=== PATIENT | male | born 1940 | race Caucasian/White ===

== ENCOUNTER 2018-01-19 13:15 | Inpatient (IN) | payer MEDICARE ==
[~2018-01-19] VITALS: Ht 180.3 cm; Wt 89.9 kg
[~2018-01-19 13:15] MED LIST: ACAR50; AMLO5 PO; AMOX875 PO; ASPI81EC PO; CLOP75 PO; DOXA2 PO; DOXA4 PO; FAMO20 PO; FENO145 PO; FISH1000 PO; GLYMET2.5; HYDACE5 PO; HYDCHL12.5 PO; INSDET100 SQ; LOSARTAN POTAS100 MG PO; LOVA20 PO; LOVA40 PO; METF500 PO; METO50; METO50 PO; NAPR550 PO; PERI4 PO; TRESIBA FL200 UNIT/1 SC; Triamterene W/1 EACH PO
[2018-01-19 13:40] LABS: Calcium, Ionized (POC) 1.05 mmol/L (1.10-1.46); Chloride (POC) 107 mmol/L (98-108); Creatinine (POC) 1.7 mg/dL (0.8-1.3); Glucose (ISTAT POC) 189 mg/dL (70-99); Hemoglobin (POC) 13.3 g/dL (13.5-17.5); Potassium (POC) 4.4 mmol/L (3.5-5.5); Sodium (POC) 138 mmol/L (135-148); Total CO2 (POC) 17 mmol/L (21-32)
[2018-01-19 14:04] LABS: BASOPHILS ABSOLUTE AUTO 0.05 K/mm3 (0.00-0.23); BASOPHILS PERCENT AUTO 1 % (0-2); EOSINOPHILS ABSOLUTE AUTO 0.13 K/mm3 (0.00-0.68); EOSINOPHILS PERCENT AUTO 1 % (0-6); Hematocrit 38.5 % (37.0-53.0); Hemoglobin 12.7 g/dL (13.5-17.5); IMMATURE GRAN ABSOLUTE AUTO 0.04 K/mm3 (0.00-0.10); IMMATURE GRAN PERCENT AUTO 0 % (0-1); LYMPHOCYTES ABSOLUTE AUTO 1.38 K/mm3 (0.84-5.20); LYMPHOCYTES PERCENT AUTO 13 % (21-46); MONOCYTES ABSOLUTE AUTO 0.53 K/mm3 (0.16-1.47); MONOCYTES PERCENT AUTO 5 % (4-13); Mean Corpuscular Volume 91 fL (80-100); Mean Platelet Volume 9.5 fL (9.1-12.4); NEUTROPHILS ABSOLUTE AUTO 8.77 K/mm3 (1.96-9.15); NEUTROPHILS PERCENT AUTO 80 % (41-73); Platelet Count 235 K/mm3 (150-400); RDW Coefficient Variation 12.4 % (11.7-14.2); RDW Standard Deviation 41.2 fL (35.1-46.3); Red Blood Cell Count 4.23 M/mm3 (4.30-5.90)
[2018-01-19 14:16] LABS: Troponin I 0.026 ng/mL (0.000-0.040)
[2018-01-19 14:20] LABS: Albumin, Blood 3.9 g/dL (3.4-5.0); Albumin/Globulin Ratio 1.1 (0.8-1.8); Bilirubin, Total 0.4 mg/dL (0.1-1.0); Bun/Creatinine Ratio 15.6 (12.0-20.0); Calcium, Blood 8.8 mg/dL (8.5-10.1); Creatinine, Blood 1.6 mg/dL (0.60-1.20); Globulin, Blood 3.7 g/dL (2.2-4.0); Potassium, Blood 4.3 mmol/L (3.5-5.5); Total Protein, Blood 7.6 g/dL (6.4-8.2)
[2018-01-19] MEDS ORDERED: LOSA25 PO (14:54)
[2018-01-19] MEDS ORDERED: Triamterene W/1 EACH PO (15:09)
[2018-01-19] MEDS ORDERED: Metoprolol Tar100 MG PO (15:09)
[2018-01-19] MEDS ORDERED: HYDRA25 PO (15:10)
[2018-01-19] MEDS ORDERED: Novofine 321 EACH MC (15:10)
[2018-01-19] MEDS ORDERED: LOSA50 PO (15:35)
[2018-01-19] MEDS ORDERED: METF500C PO (15:36)
[2018-01-20 03:54] LABS: Hematocrit 33.7 % (37.0-53.0); Mean Corpuscular HGB Conc 32.6 g/dL (31.5-36.5); Mean Corpuscular Volume 92 fL (80-100); Mean Platelet Volume 9.5 fL (9.1-12.4); Platelet Count 199 K/mm3 (150-400); RDW Coefficient Variation 12.4 % (11.7-14.2); RDW Standard Deviation 42.2 fL (35.1-46.3); Red Blood Cell Count 3.67 M/mm3 (4.30-5.90); White Blood Cell Count 6.36 K/mm3 (4.00-11.30)
[2018-01-20 04:09] LABS: Bun/Creatinine Ratio 17.7 (12.0-20.0); Calcium, Blood 7.9 mg/dL (8.5-10.1); Creatinine, Blood 1.41 mg/dL (0.60-1.20); Magnesium, Blood 1.9 mg/dL (1.6-2.4); Phosphorus, Blood 3.3 mg/dL (2.5-4.9); Potassium, Blood 4.4 mmol/L (3.5-5.5)
== END 2018-01-20 20:22 | disposition short-term general hospital (02) | DRG 287 ==
LOC: ER 13:15 → PCU 15:21
PROVIDERS: Emergency Medicine; Internal Medicine
PROC: 5A2204Z Restoration of Cardiac Rhythm, Single (ICD-10-PCS; 2018-01-19)
PROC: B2131ZZ Fluoroscopy of Multiple Coronary Artery Bypass Grafts using Low Osmolar Contrast (ICD-10-PCS; principal; 2018-01-20)
PROC: B2111ZZ Fluoroscopy of Multiple Coronary Arteries using Low Osmolar Contrast (ICD-10-PCS; 2018-01-20)
DX: I47.2 Ventricular tachycardia (principal); I25.810 Atherosclerosis of coronary artery bypass graft(s) without angina pectoris; I31.8 Other specified diseases of pericardium; I95.9 Hypotension, unspecified; J44.9 Chronic obstructive pulmonary disease, unspecified; E11.22 Type 2 diabetes mellitus with diabetic chronic kidney disease; I25.41 Coronary artery aneurysm; I44.1 Atrioventricular block, second degree; N18.3 Chronic kidney disease, stage 3 (moderate); I44.30 Unspecified atrioventricular block; F17.200 Nicotine dependence, unspecified, uncomplicated; I10 Essential (primary) hypertension; I25.10 Atherosclerotic heart disease of native coronary artery without angina pectoris; I12.9 Hypertensive chronic kidney disease with stage 1 through stage 4 chronic kidney disease, or unspecified chronic kidney disease; E55.9 Vitamin D deficiency, unspecified; E78.5 Hyperlipidemia, unspecified; N40.0 Benign prostatic hyperplasia without lower urinary tract symptoms; I25.2 Old myocardial infarction; Z95.1 Presence of aortocoronary bypass graft; Z95.5 Presence of coronary angioplasty implant and graft; Z79.899 Other long term (current) drug therapy; Z79.01 Long term (current) use of anticoagulants; Z88.5 Allergy status to narcotic agent; Z88.8 Allergy status to other drugs, medicaments and biological substances
CPT/HCPCS: 36415; 71045; 80047; 80048; 80053; 82947; 83036; 83735; 83880; 84100; 84484; 85014; 85025; 85027; 92960; 93005; 93010; 93306; 93455; 94640; 94760; 96360; 99152; 99153; 99285-25; C1769; J1644; J1650; J2250; J3010; J7030; Q9967

== ENCOUNTER 2019-05-15 18:18 | Inpatient (IN) | payer MEDICARE ==
[~2019-05-15] VITALS: Ht 182.9 cm; Wt 83.7 kg
[~2019-05-15 18:18] MED LIST changes: -CLOP75 PO; -DOXA4 PO; +LOSA25 PO; -LOVA40 PO; +Novofine 321 EACH MC; -TRESIBA FL200 UNIT/1 SC
[2019-05-15 19:12] LABS: BASOPHILS ABSOLUTE AUTO 0.02 K/mm3 (0.00-0.23); BASOPHILS PERCENT AUTO 0 % (0-2); EOSINOPHILS PERCENT AUTO 0 % (0-6); Hemoglobin 9.9 g/dL (13.5-17.5); IMMATURE GRAN ABSOLUTE AUTO 0.06 K/mm3 (0.00-0.10); IMMATURE GRAN PERCENT AUTO 1 % (0-1); LYMPHOCYTES ABSOLUTE AUTO 1.19 K/mm3 (0.84-5.20); LYMPHOCYTES PERCENT AUTO 9 % (21-46); MONOCYTES ABSOLUTE AUTO 0.55 K/mm3 (0.16-1.47); MONOCYTES PERCENT AUTO 4 % (4-13); Mean Corpuscular HGB 30.2 pg (26.0-34.0); Mean Corpuscular HGB Conc 31.9 g/dL (31.5-36.5); Mean Corpuscular Volume 95 fL (80-100); Mean Platelet Volume 10.2 fL (9.1-12.4); NEUTROPHILS ABSOLUTE AUTO 10.88 K/mm3 (1.96-9.15); NEUTROPHILS PERCENT AUTO 86 % (41-73); Platelet Count 249 K/mm3 (150-400); RDW Coefficient Variation 12.2 % (11.7-14.2); RDW Standard Deviation 42.4 fL (35.1-46.3); Red Blood Cell Count 3.28 M/mm3 (4.30-5.90)
[2019-05-15 19:35] LABS: Albumin, Blood 3.2 g/dL (3.4-5.0); Albumin/Globulin Ratio 1.1 (0.8-1.8); Bilirubin, Total 0.3 mg/dL (0.1-1.0); Bun/Creatinine Ratio 17.8 (12.0-20.0); Calcium, Blood 8.3 mg/dL (8.5-10.1); Creatinine, Blood 2.13 mg/dL (0.60-1.20); Potassium, Blood 4.4 mmol/L (3.5-5.5); Total Protein, Blood 6.2 g/dL (6.4-8.2)
[2019-05-15 20:52] LABS: CPK Creatine Kinase 302 U/L (39-308); Troponin I <0.015 ng/mL (0.000-0.040)
[2019-05-15 21:03] LABS: Source, Urine Clean Catch
[2019-05-15 21:10] LABS: Appearance, Urine Clear (Clear); Bilirubin, Urine Neg (Neg); Blood, Urine Neg (Neg); Color, Urine Yellow (P-Yellow); Glucose Qualitative, Urine Neg (Neg); Ketones, Urine Neg (Neg); Leukocyte Esterase, Urine Neg (Neg); Nitrite, Urine Neg (Neg); Protein, Urine 2+ (Neg); Specific Gravity, Urine 1.025 (1.003-1.022); Urobilinogen, Urine NORM (Normal)
[2019-05-15 21:16] LABS: Bacteria Few /hpf; Red Blood Cells, Urine 0-2 /hpf (0-2); Squamous Epithelial Cells Not Seen /hpf (Few); White Blood Cells, Urine 0-2 /hpf (0-5)
[2019-05-15] MEDS ORDERED: AMLODIPINE BESYL5 MG PO (22:14)
[2019-05-15] MEDS ORDERED: TRESIBA FL200 UNIT/1 SC (22:15)
[2019-05-15] MEDS ORDERED: HYDRA25 PO (22:16)
[2019-05-15] MEDS ORDERED: CLOP75 PO (22:16)
[2019-05-15] MEDS ORDERED: Metoprolol Tar100 MG PO (22:17)
[2019-05-15] MEDS ORDERED: Dyazide 37.5-21 EACH PO (22:18)
[2019-05-15] MEDS ORDERED: Aspir 8181 MG PO (22:42)
[2019-05-15] MEDS ORDERED: METF500 PO (22:42)
[2019-05-15] MEDS ORDERED: LOSARTAN POTAS100 MG PO (22:42)
[2019-05-15] MEDS ORDERED: CARDURA4 MG PO (22:45)
[2019-05-15] MEDS ORDERED: LOVA40 PO (22:46)
[2019-05-15 23:30] LABS: Percent Saturation 26.6 % (20.0-50.0)
--- NOTE | 2019-05-15 23:55 | NUR ---
MD CALL RECIEVED CALL FROM [employer] TO ADVISE OF PACER INTERROGATION REPORT (RECEIVED VIA FAX). CALLED DR. DELUNA TO NOTIFY OF EVENTS NOTED (OVERDRIVE PACING FOR EPISODES OF V TACH AND FLUID OVERLOAD DETECTION LEVELS INCREASING). NO DETECTED SHOCK EVENTS FOR V TACH. PER DR. DELUNA, INTERROGATION REPORT PLACED ON FRONT OF CHART FOR MD REVIEW IN THE AM. WILL MONITOR FOR RHYTHM CHANGES OR EVENTS WHEN PT ARRIVES TO ROOM FROM THE ED.
[2019-05-16 04:10] LABS: BASOPHILS ABSOLUTE AUTO 0.05 K/mm3 (0.00-0.23); BASOPHILS PERCENT AUTO 1 % (0-2); EOSINOPHILS ABSOLUTE AUTO 0.03 K/mm3 (0.00-0.68); EOSINOPHILS PERCENT AUTO 0 % (0-6); Hematocrit 27.7 % (37.0-53.0); Hemoglobin 8.6 g/dL (13.5-17.5); IMMATURE GRAN ABSOLUTE AUTO 0.04 K/mm3 (0.00-0.10); IMMATURE GRAN PERCENT AUTO 0 % (0-1); LYMPHOCYTES ABSOLUTE AUTO 1.65 K/mm3 (0.84-5.20); LYMPHOCYTES PERCENT AUTO 17 % (21-46); MONOCYTES ABSOLUTE AUTO 0.87 K/mm3 (0.16-1.47); MONOCYTES PERCENT AUTO 9 % (4-13); Mean Corpuscular HGB 29.4 pg (26.0-34.0); Mean Corpuscular Volume 95 fL (80-100); Mean Platelet Volume 9.9 fL (9.1-12.4); NEUTROPHILS ABSOLUTE AUTO 7.23 K/mm3 (1.96-9.15); NEUTROPHILS PERCENT AUTO 73 % (41-73); Platelet Count 197 K/mm3 (150-400); RDW Coefficient Variation 12.4 % (11.7-14.2); RDW Standard Deviation 42.5 fL (35.1-46.3); Red Blood Cell Count 2.93 M/mm3 (4.30-5.90); White Blood Cell Count 9.87 K/mm3 (4.00-11.30)
[2019-05-16 04:28] LABS: Bun/Creatinine Ratio 18.2 (12.0-20.0); Creatinine, Blood 1.87 mg/dL (0.60-1.20); Magnesium, Blood 1.9 mg/dL (1.6-2.4); Potassium, Blood 3.7 mmol/L (3.5-5.5)
--- NOTE | 2019-05-16 07:50 | NUR ---
ASSUMED CARE OF PT AT AROUND 2345 HE ARRIVED BY [facility] FROM ER DEPT, PATIENT TRANSFERRED TO UNIT BED VIA SLIP SHEET BY 4 [facility] STAFF. PATIENT ALERT, ORIENTED, SENSITIVE TO TOUCH IN RIGHT LEG KNEE TO GROIN, OTHERWISE NO COMPLAINTS, NO ISSUES. PATIENT HAS FULL DENTURES AT HOME BUT DOES NOT USE THEM, SAME WITH HEARING AIDS; MANAGES WITHOUT BOTH. RIGHT LEG KNEE TO GROIN SWOLLEN AND TENDER, W BRUISING AT GROIN AND BROKEN SKIN/ BLISTERS AT KNEE: SEE PICTURES IN CHART. PATIENT WAS COMPLIANT WITH ROUTINE MEDICATION PER EMAR AND ALL INTERVENTION PER UNIT PROTOCOL, OUTSIDE OF WHICH HE SLEPT WITHOUT ISSUE. GAVE CARE AND REPORT TO ONCOMING SHIFT AT 0700, PATENT AWAKE AND ALERT LYING IN BED, LOCKED AND LOW, CALL LIGHT W/IN REACH.
[2019-05-16 10:18] LABS: IMMATURE RETIC FRACTION 14.4 % (2.3-16.0); RETIC HGB EQUIVALENT 34.2 pg (28.20-36.60); RETICULOCYTE COUNT PERCENT 2.7 % (0.50-2.50)
[2019-05-16 10:35] LABS: Free Thyroxine 1.12 ng/dL (0.70-1.60)
[2019-05-16 10:43] LABS: Percent Saturation 19.2 % (20.0-50.0)
[2019-05-16 10:53] LABS: Thyroid Stimulating Hormone 1.01 uIU/mL (0.360-4.800)
--- NOTE | 2019-05-16 14:46 | NUR ---
ECHOCARDIOGRAM COMPLETE
--- NOTE | 2019-05-16 15:40 | NUR ---
AMIODARONE DRIP ADJUSTED DOWN AT 1520 TO 0.5MG/MIN (16.6ML/HR) PER ORDER. INFUSION TO CONTINUE NEXT 18 HOURS. PT IS RESTING IN BED VISITING FAMILY. TELEMETRY SHOWS PT TO BE A-PACED AT 60.
--- NOTE | 2019-05-16 18:56 | NUR ---
SHIFT SUMMARY AMIODARONE DRIP WAS STARTED THIS MORNING. PT HAD AN INITIAL BP DROP INTO THE 80'S WITH THE BOLUS, BUT RECOVERED SHORTLY AFTER. PT'S BP'S HAVE BEEN STABLE SINCE WHILE ON THE DRIP. PRIOR TO THE START OF THE DRIP PER TELEMETERY, WITH WAS IN A SECOND DEGREE HB, WITH OCCASIONAL PACING. AFTER THE AMIO DRIP WAS STARTED PT HAS BEEN 100% A-PACED, RATE OF 60. WAS ABLE TO COLLECT STOOL FOR GUIACC SAMPLE THIS EVENING AND IT WAS SENT TO LAB. PT HAD A LARGE LOOSE BM, BUT ALSO HAD A LARGE AMOUNT OF FORMED STOOL MIXED IN. SWELLING RIGHT LEG HASN'T CHANGED DURING TODAY.
--- NOTE | 2019-05-17 06:03 | NUR ---
END OF SHIFT SUMMARY PT HAS BEEN AXO, VSS, NO ACUTE CHANGES THIS SHIFT. PT HAS BEEN REPOSITIONED IN BED BY STAFF AND HAS HAD CONTINENCE CHECKS DUE TO INCONTINENT BRIEFS. PT HAS REMAINED IN THE 60'S HR WITH 100% ATRIAL PACING AND UNDERLYING MOBITZ TYPE PER ELECTRICIAN SUPERVISOR. BP HAS REMAINED STABLE. HAS REMAINED ON RA. WOUNDS REMAIN FLAGMAN, NO DRAINAGE NOTED. AMIO GTT CONTINUES TO INFUSE AND SHOULD BE COMPLETE AROUND 0920 TODAY. OTHERWISE, PT HAS BEEN VERY PLEASANT AND COOPERATIVE THIS SHIFT. WILL CONTINUE TO MONITOR UNTIL SHIFT CHANGE.
[2019-05-17 09:37] LABS: BASOPHILS ABSOLUTE AUTO 0.06 K/mm3 (0.00-0.23); BASOPHILS PERCENT AUTO 1 % (0-2); EOSINOPHILS PERCENT AUTO 1 % (0-6); Hematocrit 28.8 % (37.0-53.0); Hemoglobin 9.1 g/dL (13.5-17.5); IMMATURE GRAN ABSOLUTE AUTO 0.04 K/mm3 (0.00-0.10); IMMATURE GRAN PERCENT AUTO 0 % (0-1); LYMPHOCYTES ABSOLUTE AUTO 1.82 K/mm3 (0.84-5.20); LYMPHOCYTES PERCENT AUTO 17 % (21-46); MONOCYTES ABSOLUTE AUTO 0.65 K/mm3 (0.16-1.47); MONOCYTES PERCENT AUTO 6 % (4-13); Mean Corpuscular HGB 30.5 pg (26.0-34.0); Mean Corpuscular HGB Conc 31.6 g/dL (31.5-36.5); Mean Corpuscular Volume 97 fL (80-100); Mean Platelet Volume 9.7 fL (9.1-12.4); NEUTROPHILS ABSOLUTE AUTO 7.85 K/mm3 (1.96-9.15); NEUTROPHILS PERCENT AUTO 75 % (41-73); Platelet Count 234 K/mm3 (150-400); RDW Coefficient Variation 12.5 % (11.7-14.2); RDW Standard Deviation 42.8 fL (35.1-46.3); Red Blood Cell Count 2.98 M/mm3 (4.30-5.90); White Blood Cell Count 10.52 K/mm3 (4.00-11.30)
[2019-05-17 09:56] LABS: Bilirubin, Total 0.4 mg/dL (0.1-1.0); Bun/Creatinine Ratio 21.4 (12.0-20.0); Calcium, Blood 8.3 mg/dL (8.5-10.1); Creatinine, Blood 1.4 mg/dL (0.60-1.20); Globulin, Blood 3.1 g/dL (2.2-4.0); Potassium, Blood 4.1 mmol/L (3.5-5.5); Total Protein, Blood 6.1 g/dL (6.4-8.2)
[2019-05-17 10:00] LABS: Thyroid Stimulating Hormone 1.68 uIU/mL (0.360-4.800)
[2019-05-17 14:22] LABS: Stool Occult Blood Guaiac 1 Neg (Neg)
--- NOTE | 2019-05-17 18:00 | NUR ---
SHIFT NOTE PT WAS UP TO BEDSIDE CHAIR MOST OF THE DAY TODAY, PT WAS PUT BACK TO BED EARLY THIS EVENING BY PT TO ELEVATE LEGS. SOME NEW SWELLING NOTED TO RIGHT KNEE ADN THIGH BUT HAS SUBSIDED WITH ELEVATION. PT HAS BEEN UP TO BEDSIDE COMMODE WITH FWW AND 1 PERSON STANDBY ASSIST, PT ABLE TO USE URINAL HIMSELF W/O DIFF. PT WITH NOTED THICK TONGUE SPEECH THAT PT STS IS HIS BASELINE. PHYSICAL THERAPY CONSULT SUGGESTS HOME HEALTH FOR PT. VSS. PT HAS HAD GOOD APPETITE T/O THE SHIFT WITH EXTRA SNACKS T/O DAY. PT DID HAVE BRIEF EPISODE OF HYPOGLYCEMIA THIS AM THAT RESOLVED WITH JUICE AND FOOD.
--- NOTE | 2019-05-18 05:23 | NUR ---
END OF SHIFT SUMMARY NO ACUTE CHANGES THIS SHIFT. VSS. REMAINS ATRIAL PACED BUT PACING APPEAR "ABNORMAL" WITH DROPPED BEATS AND INCONSISTENCIES ATTIMES. OPERATING ROOM SCHEDULER GENESIS HAS SEEN THE RHTYHM PER REPORT FROM THE DAY NURSE. BP HAS REMAINED STABLE. H REMAINS IN THE 60'S. BRUISING, BLISTERS, AN WOUNDS POST FALL PRE [facility] ALL REMAIN THE SAME. PT HAS SLEPT THROUGHOUT THE NIGHT AND USED THE EDWARD LIGHT APPROPRIATELY.
--- NOTE | 2019-05-18 08:34 | NUR ---
Pt has no complaints this morning. He is pleasant, cheerful, and has finished eating breakfast. Asking for coffee. Assisted to the chair after using the urinal.
[2019-05-18 09:21] LABS: BASOPHILS ABSOLUTE AUTO 0.07 K/mm3 (0.00-0.23); BASOPHILS PERCENT AUTO 1 % (0-2); EOSINOPHILS ABSOLUTE AUTO 0.17 K/mm3 (0.00-0.68); EOSINOPHILS PERCENT AUTO 2 % (0-6); Hematocrit 28.1 % (37.0-53.0); Hemoglobin 8.9 g/dL (13.5-17.5); IMMATURE GRAN ABSOLUTE AUTO 0.05 K/mm3 (0.00-0.10); IMMATURE GRAN PERCENT AUTO 1 % (0-1); LYMPHOCYTES ABSOLUTE AUTO 2.09 K/mm3 (0.84-5.20); LYMPHOCYTES PERCENT AUTO 24 % (21-46); MONOCYTES ABSOLUTE AUTO 0.65 K/mm3 (0.16-1.47); MONOCYTES PERCENT AUTO 8 % (4-13); Mean Corpuscular HGB 29.9 pg (26.0-34.0); Mean Corpuscular HGB Conc 31.7 g/dL (31.5-36.5); Mean Platelet Volume 9.8 fL (9.1-12.4); NEUTROPHILS ABSOLUTE AUTO 5.57 K/mm3 (1.96-9.15); NEUTROPHILS PERCENT AUTO 65 % (41-73); NRBC ABSOLUTE 0.02 K/mm3 (0.00-0.02); NRBC Auto 0.2 /100 WBC (0.0-0.2); Platelet Count 286 K/mm3 (150-400); RDW Coefficient Variation 12.6 % (11.7-14.2); RDW Standard Deviation 43.1 fL (35.1-46.3); Red Blood Cell Count 2.98 M/mm3 (4.30-5.90)
[2019-05-18 09:22] LABS: Mean Corpuscular Volume 94 fL (80-100)
[2019-05-18] MEDS ORDERED: Amiodarone HCl200 MG PO (09:52)
--- NOTE | 2019-05-18 19:22 | NUR ---
Call to the pt's home to notify him of home medication Tresiba Flextouch pen which was left. states she will come next Friday to pick it up.
== END 2019-05-18 12:01 | disposition home or self-care (01) | DRG 312 ==
LOC: ER 18:18 → PCU 22:50
PROVIDERS: Emergency Medicine; Hospitalist; Internal Medicine Cardiovascular Disease; Physician Assistant; ADMIT Internal Medicine
DX: I95.2 Hypotension due to drugs (principal); I47.2 Ventricular tachycardia; N17.9 Acute kidney failure, unspecified; Z79.4 Long term (current) use of insulin; I25.5 Ischemic cardiomyopathy; I25.10 Atherosclerotic heart disease of native coronary artery without angina pectoris; J44.9 Chronic obstructive pulmonary disease, unspecified; K21.9 Gastro-esophageal reflux disease without esophagitis; E78.5 Hyperlipidemia, unspecified; E11.22 Type 2 diabetes mellitus with diabetic chronic kidney disease; N18.3 Chronic kidney disease, stage 3 (moderate); I12.9 Hypertensive chronic kidney disease with stage 1 through stage 4 chronic kidney disease, or unspecified chronic kidney disease; Z87.891 Personal history of nicotine dependence; Z95.1 Presence of aortocoronary bypass graft; Z66 Do not resuscitate; Z95.0 Presence of cardiac pacemaker; W19.XXXA Unspecified fall, initial encounter; D64.9 Anemia, unspecified; T46.1X5A Adverse effect of calcium-channel blockers, initial encounter; T46.5X5A Adverse effect of other antihypertensive drugs, initial encounter; Y92.9 Unspecified place or not applicable
CPT/HCPCS: 36415; 51701; 71046; 73562-RT; 80048; 80053; 81001; 82272; 82550; 82607; 82728; 82746; 82947; 83036; 83540; 83550; 83735; 84439; 84443; 84484; 85025; 85045; 93005; 93010; 93306; 96360; 97162; 97530; 99285-25; J0282; J1650; J1815; J3475; J7030; J7060; J7120

== ENCOUNTER 2019-05-25 11:53 | Emergency (ER) | payer MEDICARE ==
[~2019-05-25] VITALS: Ht 180.3 cm; Wt 81.7 kg
[~2019-05-25 11:53] MED LIST changes: +AMLODIPINE BESYL5 MG PO; +Amiodarone HCl200 MG PO; +Aspir 8181 MG PO; +CARDURA4 MG PO; +CLOP75 PO; +Dyazide 37.5-21 EACH PO; +HYDRA25 PO; +LOVA40 PO; +Metoprolol Tar100 MG PO; +TRESIBA FL200 UNIT/1 SC
[2019-05-25 15:05] LABS: Calcium, Ionized (POC) 1.21 mmol/L (1.10-1.46); Chloride (POC) 107 mmol/L (98-108); Creatinine (POC) 1.5 mg/dL (0.8-1.3); Glucose (ISTAT POC) 64 mg/dL (70-99); Hemoglobin (POC) 10.2 g/dL (13.5-17.5); Potassium (POC) 4.6 mmol/L (3.5-5.5); Sodium (POC) 138 mmol/L (135-148); Total CO2 (POC) 22 mmol/L (21-32)
== END 2019-05-25 15:22 | disposition home or self-care (01) ==
LOC: ER 11:53
PROVIDERS: Emergency Medicine
DX: S70.11XA Contusion of right thigh, initial encounter (principal); D68.9 Coagulation defect, unspecified; T45.525A Adverse effect of antithrombotic drugs, initial encounter; I12.9 Hypertensive chronic kidney disease with stage 1 through stage 4 chronic kidney disease, or unspecified chronic kidney disease; E11.22 Type 2 diabetes mellitus with diabetic chronic kidney disease; N18.3 Chronic kidney disease, stage 3 (moderate); I25.10 Atherosclerotic heart disease of native coronary artery without angina pectoris; J44.9 Chronic obstructive pulmonary disease, unspecified; I25.2 Old myocardial infarction; M79.651 Pain in right thigh; Z88.5 Allergy status to narcotic agent; Z88.8 Allergy status to other drugs, medicaments and biological substances; Z79.899 Other long term (current) drug therapy; Z79.82 Long term (current) use of aspirin; Z79.4 Long term (current) use of insulin; Z87.891 Personal history of nicotine dependence; Z95.5 Presence of coronary angioplasty implant and graft; W19.XXXA Unspecified fall, initial encounter
CPT/HCPCS: 36415; 80047; 85014; 90471; 90714; 93971; 99284-25

== ENCOUNTER 2019-06-30 16:54 | Inpatient (IN) | payer MEDICARE ==
[~2019-06-30] VITALS: Ht 182.9 cm; Wt 78.1 kg
[~2019-06-30 16:54] MED LIST changes: +METO25 PO; -Metoprolol Tar100 MG PO
[2019-06-30 18:03] LABS: BASOPHILS ABSOLUTE AUTO 0.04 K/mm3 (0.00-0.23); BASOPHILS PERCENT AUTO 0 % (0-2); EOSINOPHILS ABSOLUTE AUTO 0.04 K/mm3 (0.00-0.68); EOSINOPHILS PERCENT AUTO 0 % (0-6); Hematocrit 38.3 % (37.0-53.0); Hemoglobin 12.4 g/dL (13.5-17.5); IMMATURE GRAN ABSOLUTE AUTO 0.05 K/mm3 (0.00-0.10); IMMATURE GRAN PERCENT AUTO 0 % (0-1); LYMPHOCYTES ABSOLUTE AUTO 0.81 K/mm3 (0.84-5.20); LYMPHOCYTES PERCENT AUTO 7 % (21-46); MONOCYTES ABSOLUTE AUTO 0.54 K/mm3 (0.16-1.47); MONOCYTES PERCENT AUTO 4 % (4-13); Mean Corpuscular HGB 30.7 pg (26.0-34.0); Mean Corpuscular HGB Conc 32.4 g/dL (31.5-36.5); Mean Corpuscular Volume 95 fL (80-100); NEUTROPHILS ABSOLUTE AUTO 10.69 K/mm3 (1.96-9.15); NEUTROPHILS PERCENT AUTO 88 % (41-73); Platelet Count 407 K/mm3 (150-400); RDW Coefficient Variation 13.2 % (11.7-14.2); RDW Standard Deviation 46.5 fL (35.1-46.3); Red Blood Cell Count 4.04 M/mm3 (4.30-5.90); White Blood Cell Count 12.17 K/mm3 (4.00-11.30)
[2019-06-30 18:23] LABS: CPK Creatine Kinase 57 U/L (39-308); Troponin I <0.015 ng/mL (0.000-0.040)
[2019-06-30] MEDS ORDERED: Dyazide 37.5-21 EACH PO (18:26)
[2019-06-30 18:28] LABS: Albumin, Blood 3.1 g/dL (3.4-5.0); Albumin/Globulin Ratio 0.8 (0.8-1.8); Bilirubin, Total 0.3 mg/dL (0.1-1.0); Bun/Creatinine Ratio 25.1 (12.0-20.0); Calcium, Blood 8.7 mg/dL (8.5-10.1); Creatinine, Blood 1.91 mg/dL (0.60-1.20); Globulin, Blood 3.8 g/dL (2.2-4.0); Potassium, Blood 4.9 mmol/L (3.5-5.5); Total Protein, Blood 6.9 g/dL (6.4-8.2)
--- NOTE | 2019-07-01 02:58 | NUR ---
spoke to Dr Bui regarding patient not voiding; only 50 ML output since he arrived to floor at 2130; ALSO Bladder scan shows 833 ml in the bladder; received Order for Straight Cath Q6P for bladder scan > 400 ML
--- NOTE | 2019-07-01 06:33 | NUR ---
PATIENT AO4 WITH PERIODS OF STML AND CONFUSION. HE HAD ONLY 50ML THE FIRST HALF OF THE SHIFT. BLADDER SCAN SHOWED 833 AND HE WAS STRAIGHT CATHED PER ORDER TO REURN 700 ML PER ORDER. NEW ORDER FOR STRAIGHT CATH Q6PRN FOR BLADDER VOLUME >400ML. PT OWN INSULIN IS IN HIS PATIENT DRAWER. PT TO HAVE CARDIOLOGY CX AND ORTHO CX WHICH HAVE BEEN CALLED. PT HAS OINTMENT TO RECTUM FOR HEMORRHOIDS.BED LOW LOCKED AND ALARMED. CALL ESTRADA WITHIN REACH.
[2019-07-01] MEDS ORDERED: Fish Oil Conc1000 MG PO (07:47)
[2019-07-01] MEDS ORDERED: GUAI600T33 PO (07:48)
[2019-07-01] MEDS ORDERED: THERA-D2000 UNIT PO (07:48)
[2019-07-01] MEDS ORDERED: FAMO20 PO (07:49)
[2019-07-01] MEDS ORDERED: NAPR220 PO (07:49)
[2019-07-01] MEDS ORDERED: HYDRA25 PO (07:50)
[2019-07-01 08:01] LABS: BASOPHILS ABSOLUTE AUTO 0.03 K/mm3 (0.00-0.23); BASOPHILS PERCENT AUTO 0 % (0-2); EOSINOPHILS ABSOLUTE AUTO 0.01 K/mm3 (0.00-0.68); EOSINOPHILS PERCENT AUTO 0 % (0-6); Hematocrit 36.5 % (37.0-53.0); Hemoglobin 11.8 g/dL (13.5-17.5); IMMATURE GRAN ABSOLUTE AUTO 0.08 K/mm3 (0.00-0.10); IMMATURE GRAN PERCENT AUTO 1 % (0-1); LYMPHOCYTES ABSOLUTE AUTO 0.81 K/mm3 (0.84-5.20); LYMPHOCYTES PERCENT AUTO 5 % (21-46); MONOCYTES ABSOLUTE AUTO 0.76 K/mm3 (0.16-1.47); MONOCYTES PERCENT AUTO 5 % (4-13); Mean Corpuscular HGB 30.6 pg (26.0-34.0); Mean Corpuscular HGB Conc 32.3 g/dL (31.5-36.5); Mean Corpuscular Volume 95 fL (80-100); Mean Platelet Volume 8.7 fL (9.1-12.4); NEUTROPHILS ABSOLUTE AUTO 14.62 K/mm3 (1.96-9.15); NEUTROPHILS PERCENT AUTO 90 % (41-73); Platelet Count 372 K/mm3 (150-400); RDW Coefficient Variation 13.1 % (11.7-14.2); RDW Standard Deviation 45.5 fL (35.1-46.3); Red Blood Cell Count 3.86 M/mm3 (4.30-5.90); White Blood Cell Count 16.31 K/mm3 (4.00-11.30)
[2019-07-01 08:19] LABS: Bun/Creatinine Ratio 26.3 (12.0-20.0); Calcium, Blood 8.7 mg/dL (8.5-10.1); Creatinine, Blood 1.52 mg/dL (0.60-1.20); Potassium, Blood 4.5 mmol/L (3.5-5.5)
[2019-07-01 11:53] LABS: Source, Urine Catheter
[2019-07-01 12:05] LABS: Bilirubin, Urine Neg (Neg); Blood, Urine 2+ (Neg); Glucose Qualitative, Urine 1+ (Neg); Ketones, Urine Neg (Neg); Leukocyte Esterase, Urine Neg (Neg); Nitrite, Urine Neg (Neg); Protein, Urine 3+ (Neg); Urobilinogen, Urine NORM (Normal)
[2019-07-01 12:14] LABS: Appearance, Urine Clear (Clear); Color, Urine Yellow (P-Yellow)
[2019-07-01 12:16] LABS: Amorphous Mod (0-Heavy); Bacteria Mod /hpf; Squamous Epithelial Cells Rare /hpf (Few); White Blood Cells, Urine 0-2 /hpf (0-5)
--- NOTE | 2019-07-01 18:11 | NUR ---
SHIFT SUMMARY PATIENT A/O X 4. FAMILY AT BEDSIDE. PATIENT HAS SOME CONFUSION AT TIMES, SENECA-CAYUGA. PATIENT IS HIGH FALL RISK, BED/CHAIR ALARM IN PLACE. VALERO IN PLACE PER ORDER. TELE ON PATIENT. BRADYCARDIA ADDRESSED BY PROVIDER. PATIENT HAS NEW ORDERS ENTERED FOR MANAGEMENT OF RIGHT LEG HEMATOMA. BRIAN HOSE IN PLACE. LN TO CONTINUE TO MONITOR.
--- NOTE | 2019-07-02 04:45 | NUR ---
SANDER SETTER SUMMARY NO ACUTE CHANGES THIS SHIFT. PT AAOX3 AND PLEASANT. BED ALARM ON FOR HIGH FALL RISK AND SOME INTERMITTENT CONFUSION. PT HAS RESTED MOST OF THE SHIFT TODAY. VALERO CATHETER DRAINING CLEAR YELLOW URINE. VSS, WILL CONTINUE TO MONITOR.
[2019-07-02 05:33] LABS: Hemoglobin 10.9 g/dL (13.5-17.5); Mean Corpuscular HGB 30.7 pg (26.0-34.0); Mean Corpuscular Volume 93 fL (80-100); Mean Platelet Volume 9.1 fL (9.1-12.4); Platelet Count 338 K/mm3 (150-400); RDW Coefficient Variation 13.1 % (11.7-14.2); RDW Standard Deviation 44.8 fL (35.1-46.3); Red Blood Cell Count 3.55 M/mm3 (4.30-5.90); White Blood Cell Count 14.63 K/mm3 (4.00-11.30)
[2019-07-02 06:00] LABS: Bun/Creatinine Ratio 28.1 (12.0-20.0); Calcium, Blood 8.4 mg/dL (8.5-10.1); Creatinine, Blood 1.39 mg/dL (0.60-1.20); Potassium, Blood 4.1 mmol/L (3.5-5.5)
--- NOTE | 2019-07-02 17:34 | NUR ---
SHIFT SUMMARY PATIENT HAS BEEN VERY PAINFUL AND FEARFUL DURING TRANSFERS. VARIES BETWEEN 2 PERSON AND 1 PERSON ASSIST. VALERO REMOVED, URINATING. ABLE TO MAKE HIS NEEDS KNOWN. FAMILY AT BEDSIDE.
--- NOTE | 2019-07-03 05:15 | NUR ---
RESIDENTIAL PROGRAM DIRECTOR SUMMARY NO ACUTE CHANGES THIS SHIFT. PT AAOX3, PLEASANT AND COOPERATIVE. GIVEN TRAMADOL X2 T/O THE NIGHT FOR LOWER BACK PAIN. PT REQUIRING ASSISTANCE WITH USING THE URINAL AT TIMES. VSS, WILL CONTINUE TO MONITOR.
[2019-07-03 08:16] LABS: Hematocrit 33.9 % (37.0-53.0); Hemoglobin 10.9 g/dL (13.5-17.5); Mean Corpuscular HGB 30.1 pg (26.0-34.0); Mean Corpuscular HGB Conc 32.2 g/dL (31.5-36.5); Mean Corpuscular Volume 94 fL (80-100); Mean Platelet Volume 8.7 fL (9.1-12.4); Platelet Count 298 K/mm3 (150-400); RDW Standard Deviation 44.7 fL (35.1-46.3); Red Blood Cell Count 3.62 M/mm3 (4.30-5.90)
[2019-07-03 08:36] LABS: Calcium, Blood 8.4 mg/dL (8.5-10.1); Creatinine, Blood 1.29 mg/dL (0.60-1.20); Potassium, Blood 4.6 mmol/L (3.5-5.5)
--- NOTE | 2019-07-03 16:48 | NUR ---
SUMMARY PT IS A/O X4, PLEASANT AFFECT. 2 ASSIST TO STAND/PIVOT TO BSC THIS AM, HE WAS ABLE TO HAVE BM. GAIT UNSTEADY. HE STATE L LEG GOES OUT FROM UNDER HIM W/O WARNING, STATE MULT FALLS @ HOME REASON FOR HOSP, VARIOUS SCATTERED BRUISES NOTED. DR LOAIZA CHANGED STATUS TO INPT TODAY, PT'S AWARE, STATE APPRECIATION & HOPEFUL FOR PT TO GO TO REHAB WHEN APPROP. VSS. BLOOD SUGAR ELEVATED 260 BF, 429 LUNCH, DR LOAIZA AWARE, CHANGE LONG ACTING BACK TO HOME TRESIBA.
--- NOTE | 2019-07-04 05:03 | NUR ---
SHIFT SUMMARY: AXEL IS A&OX3, FORGETFUL AT TIMES. REPORTING BACK PAIN UNRELIEVED BY TRAMADOL AND TYLENOL. HEAT THERAPY WAS ADDED AND TRIM INSTALLER MD WAS NOTIFIED. ORDER FOR LIDOCAIN PATCH TO BACK Q DAY WAS OBTAINED. PATIENT NOW HAS GOOD EFFECT FROM COMBINED TREATMENTS. ELEVATED BP WAS ALSO REPORTED TO MD, NO NEW ORDERS GIVE HOME MEDICATIONS ORDERED, TREAT PAIN AND CONTINUE TO MONITOR.
--- NOTE | 2019-07-05 03:44 | NUR ---
SHIFT SUMMARY: PATIENTS SKIN FRAGILE, CONDOM CATHETER PLACED D/T SEVERAL INCONTINENT VOIDS AND INABILITY TO SUCCESSFULLY USE THE URINAL. SUCTION SET UP DUE TO FREQUENT PHLEGM, PATIENT STATES THIS IS NORMAL FOR HIM. PATIENT EDUCATED ON CATHETER AND SUCTION AND STATES SATISFACTION WITH BOTH. PATIENT SBP >160 WHEN IN PAIN BUT DECREASES TO 140'S POST PAIN MEDICATION, KPAD ALSO PLACED FOR COMFORT. TOWEL ROLL PLACED UNDER NECK FOR NECK SUPPORT AND DECREASE IN BACK PAIN. PRESSURE DRESSING ON PATIENTS RIGHT LEG CHANGED. ALL HANDY PROMENANCES PADDED AND FREQUENT SKIN CARE COMPLETED. CALL LIGHT WITHIN REACH, BED LOW AND LOCKED WITH EXIT ALARM ON.
--- NOTE | 2019-07-05 17:39 | NUR ---
ALERT, ORIENTED X 3. 2 PERSON ASSIST TO BSC, VERY UNSTEADY ON FEET. PULLED CONDOM CATH OFF. HAS DIFFICULTY USING URINAL. SUCTION CHANGED TO SHEATHED YANKAUER TO KEEP YANKAUER CLEAN. ADVISED HOW TO USE. HAS NOT COMPLAINED OF PAIN. WCTM
--- NOTE | 2019-07-05 19:08 | NUR ---
Pt gave this clinical nursing professor permission to care for him on 07/06/2019
[2019-07-06 05:40] LABS: BASOPHILS ABSOLUTE AUTO 0.05 K/mm3 (0.00-0.23); BASOPHILS PERCENT AUTO 1 % (0-2); EOSINOPHILS ABSOLUTE AUTO 0.21 K/mm3 (0.00-0.68); EOSINOPHILS PERCENT AUTO 2 % (0-6); Hematocrit 35.8 % (37.0-53.0); Hemoglobin 11.6 g/dL (13.5-17.5); IMMATURE GRAN ABSOLUTE AUTO 0.05 K/mm3 (0.00-0.10); IMMATURE GRAN PERCENT AUTO 1 % (0-1); LYMPHOCYTES ABSOLUTE AUTO 1.14 K/mm3 (0.84-5.20); LYMPHOCYTES PERCENT AUTO 12 % (21-46); MONOCYTES ABSOLUTE AUTO 0.66 K/mm3 (0.16-1.47); MONOCYTES PERCENT AUTO 7 % (4-13); Mean Corpuscular HGB 30.1 pg (26.0-34.0); Mean Corpuscular HGB Conc 32.4 g/dL (31.5-36.5); Mean Corpuscular Volume 93 fL (80-100); Mean Platelet Volume 8.9 fL (9.1-12.4); NEUTROPHILS ABSOLUTE AUTO 7.05 K/mm3 (1.96-9.15); NEUTROPHILS PERCENT AUTO 77 % (41-73); Platelet Count 323 K/mm3 (150-400); RDW Coefficient Variation 12.8 % (11.7-14.2); RDW Standard Deviation 43.5 fL (35.1-46.3); Red Blood Cell Count 3.86 M/mm3 (4.30-5.90); White Blood Cell Count 9.16 K/mm3 (4.00-11.30)
--- NOTE | 2019-07-06 06:07 | NUR ---
SHIFT SUMMARY NO ACUTE CHANGES THIS SHIFT. AOX4. VSS. TELE RUNNING NSR W/1ST DEGREE HB & OCCASIONALLY PACED HR @60. CONDOM CATH PLACED SINCE PT HAS DIFFICULTY USING URINAL & FREQUENTLY HAS TO URINATE. DENIES N/V, DYSPNEA. REPORTS PAIN IN LOWER BACK, MEDICATED 1X W/ULTRAM & STATES RELIEF. PT TURNED & REPOSITIONED. CALL LIGHT IN REACH. WCTM.
[2019-07-06 06:10] LABS: Anion Gap 5 mmol/L (6-16); Blood Urea Nitrogen 26 mg/dL (8-24); Bun/Creatinine Ratio 22.6 (12.0-20.0); CO2, Blood 26 mmol/L (21-32); Calcium, Blood 8.4 mg/dL (8.5-10.1); Chloride, Blood 102 mmol/L (98-108); Creatinine, Blood 1.15 mg/dL (0.60-1.20); Glomerular Filtration Rate >60 (60-); Glucose, Blood 120 mg/dL (70-99); Potassium, Blood 4.5 mmol/L (3.5-5.5); Sodium, Blood 133 mmol/L (136-145)
--- NOTE | 2019-07-06 11:58 | NUR ---
REPORT GIVEN TO [facility] MERAZ. JOHN VALLES WILL GO WITH PATIENT.ANSWER ALL QUESTIONS.
[2019-07-06] MEDS ORDERED: TAMS.4ER PO (12:48)
[2019-07-06] MEDS ORDERED: FINA5 PO (12:48)
== END 2019-07-06 12:35 | DRG 872 ==
LOC: ER 16:54 → MEDS 16:55
PROVIDERS: Emergency Medicine; Internal Medicine; Physician Assistant; ADMIT Family Medicine
DX: A41.9 Sepsis, unspecified organism (principal); E87.1 Hypo-osmolality and hyponatremia; R53.1 Weakness; W18.30XA Fall on same level, unspecified, initial encounter; Y93.9 Activity, unspecified; Y92.9 Unspecified place or not applicable; I25.10 Atherosclerotic heart disease of native coronary artery without angina pectoris; J44.9 Chronic obstructive pulmonary disease, unspecified; Z79.4 Long term (current) use of insulin; K21.9 Gastro-esophageal reflux disease without esophagitis; Z87.891 Personal history of nicotine dependence; S70.11XA Contusion of right thigh, initial encounter; E78.5 Hyperlipidemia, unspecified; D47.3 Essential (hemorrhagic) thrombocythemia; Z95.1 Presence of aortocoronary bypass graft; N18.3 Chronic kidney disease, stage 3 (moderate); I12.9 Hypertensive chronic kidney disease with stage 1 through stage 4 chronic kidney disease, or unspecified chronic kidney disease; K59.00 Constipation, unspecified; E11.22 Type 2 diabetes mellitus with diabetic chronic kidney disease; E11.40 Type 2 diabetes mellitus with diabetic neuropathy, unspecified; N40.1 Benign prostatic hyperplasia with lower urinary tract symptoms; R33.9 Retention of urine, unspecified; Z95.810 Presence of automatic (implantable) cardiac defibrillator; E11.65 Type 2 diabetes mellitus with hyperglycemia; R33.8 Other retention of urine
CPT/HCPCS: 36415; 51701; 51702; 70450; 71045; 72070; 72100; 80048; 80053; 81001; 82550; 82947; 84145; 84484; 85025; 85027; 87040; 87086; 93005; 93010; 93971; 96361; 96365; 96366; 96374; 97110; 97162; 97166; 97530; 97535; 99285-25; A9270; A9270-GY; G0378; J0696; J1815; J2405; J7120

== ENCOUNTER 2019-08-29 10:23 | Emergency (ER) | payer MEDICARE ==
[~2019-08-29] VITALS: Ht 180.3 cm; Wt 81.7 kg
[~2019-08-29 10:23] MED LIST changes: +FINA5 PO; +Fish Oil Conc1000 MG PO; +GUAI600T33 PO; +NAPR220 PO; +TAMS.4ER PO; +THERA-D2000 UNIT PO
[2019-08-29 11:04] LABS: BASOPHILS ABSOLUTE AUTO 0.03 K/mm3 (0.00-0.23); BASOPHILS PERCENT AUTO 0 % (0-2); EOSINOPHILS ABSOLUTE AUTO 0.02 K/mm3 (0.00-0.68); EOSINOPHILS PERCENT AUTO 0 % (0-6); Hematocrit 29.2 % (37.0-53.0); Hemoglobin 9.4 g/dL (13.5-17.5); IMMATURE GRAN ABSOLUTE AUTO 0.09 K/mm3 (0.00-0.10); IMMATURE GRAN PERCENT AUTO 1 % (0-1); LYMPHOCYTES ABSOLUTE AUTO 0.66 K/mm3 (0.84-5.20); LYMPHOCYTES PERCENT AUTO 5 % (21-46); MONOCYTES ABSOLUTE AUTO 0.65 K/mm3 (0.16-1.47); MONOCYTES PERCENT AUTO 5 % (4-13); Mean Corpuscular HGB Conc 32.2 g/dL (31.5-36.5); Mean Corpuscular Volume 87 fL (80-100); Mean Platelet Volume 9.1 fL (9.1-12.4); NEUTROPHILS ABSOLUTE AUTO 11.28 K/mm3 (1.96-9.15); NEUTROPHILS PERCENT AUTO 89 % (41-73); Platelet Count 314 K/mm3 (150-400); RDW Coefficient Variation 12.9 % (11.7-14.2); RDW Standard Deviation 41.1 fL (35.1-46.3); Red Blood Cell Count 3.36 M/mm3 (4.30-5.90); White Blood Cell Count 12.73 K/mm3 (4.00-11.30)
[2019-08-29 11:23] LABS: Alanine Aminotransfer (ALT/SGP 26 U/L (12-78); Albumin, Blood 1.9 g/dL (3.4-5.0); Albumin/Globulin Ratio 0.5 (0.8-1.8); Alk Phos 65 U/L (50-136); Anion Gap 7 mmol/L (6-16); Aspartate Aminotrans (AST/SGOT 16 U/L (12-37); Bilirubin, Total 0.3 mg/dL (0.1-1.0); Blood Urea Nitrogen 17 mg/dL (8-24); Bun/Creatinine Ratio 17.9 (12.0-20.0); CO2, Blood 27 mmol/L (21-32); Calcium, Blood 8.1 mg/dL (8.5-10.1); Chloride, Blood 93 mmol/L (98-108); Creatinine, Blood 0.95 mg/dL (0.60-1.20); Globulin, Blood 4.1 g/dL (2.2-4.0); Glomerular Filtration Rate >60 (60-); Glucose, Blood 332 mg/dL (70-99); Potassium, Blood 3.6 mmol/L (3.5-5.5); Sodium, Blood 127 mmol/L (136-145)
== END 2019-08-29 13:55 | disposition home or self-care (01) ==
LOC: ER 10:23
PROVIDERS: Emergency Medicine
DX: S01.81XA Laceration without foreign body of other part of head, initial encounter (principal); S60.211A Contusion of right wrist, initial encounter; S30.0XXA Contusion of lower back and pelvis, initial encounter; E11.9 Type 2 diabetes mellitus without complications; J44.9 Chronic obstructive pulmonary disease, unspecified; I12.9 Hypertensive chronic kidney disease with stage 1 through stage 4 chronic kidney disease, or unspecified chronic kidney disease; N18.3 Chronic kidney disease, stage 3 (moderate); D63.1 Anemia in chronic kidney disease; N40.0 Benign prostatic hyperplasia without lower urinary tract symptoms; K21.9 Gastro-esophageal reflux disease without esophagitis; Z87.891 Personal history of nicotine dependence; Z88.5 Allergy status to narcotic agent; Z88.8 Allergy status to other drugs, medicaments and biological substances; Z79.899 Other long term (current) drug therapy; Z79.82 Long term (current) use of aspirin; Z79.4 Long term (current) use of insulin; W18.30XA Fall on same level, unspecified, initial encounter
CPT/HCPCS: 12013; 70450; 72100; 72125; 73100; 80053; 85025; 99284-25

== ENCOUNTER 2019-12-04 18:14 | Inpatient (IN) | payer MEDICARE ==
[~2019-12-04] VITALS: Ht 188 cm; Wt 83.8 kg
[2019-12-04 18:48] LABS: BASOPHILS ABSOLUTE AUTO 0.02 K/mm3 (0.00-0.23); BASOPHILS PERCENT AUTO 0 % (0-2); EOSINOPHILS ABSOLUTE AUTO 0.04 K/mm3 (0.00-0.68); EOSINOPHILS PERCENT AUTO 1 % (0-6); Hematocrit 29.1 % (37.0-53.0); Hemoglobin 9.1 g/dL (13.5-17.5); IMMATURE GRAN ABSOLUTE AUTO 0.03 K/mm3 (0.00-0.10); IMMATURE GRAN PERCENT AUTO 1 % (0-1); LYMPHOCYTES PERCENT AUTO 13 % (21-46); MONOCYTES ABSOLUTE AUTO 0.13 K/mm3 (0.16-1.47); MONOCYTES PERCENT AUTO 2 % (4-13); Mean Corpuscular HGB 25.3 pg (26.0-34.0); Mean Corpuscular HGB Conc 31.3 g/dL (31.5-36.5); Mean Corpuscular Volume 81 fL (80-100); Mean Platelet Volume 10.4 fL (9.1-12.4); NEUTROPHILS ABSOLUTE AUTO 4.57 K/mm3 (1.96-9.15); NEUTROPHILS PERCENT AUTO 83 % (41-73); Platelet Count 72 K/mm3 (150-400); RDW Coefficient Variation 15.9 % (11.7-14.2); RDW Standard Deviation 47.2 fL (35.1-46.3); Red Blood Cell Count 3.59 M/mm3 (4.30-5.90); White Blood Cell Count 5.49 K/mm3 (4.00-11.30)
[2019-12-04 19:02] LABS: Alanine Aminotransfer (ALT/SGP 75 U/L (12-78); Albumin, Blood 1.8 g/dL (3.4-5.0); Albumin/Globulin Ratio 0.4 (0.8-1.8); Alk Phos 98 U/L (50-136); Anion Gap 2 mmol/L (6-16); Aspartate Aminotrans (AST/SGOT 61 U/L (12-37); Bilirubin, Total 0.3 mg/dL (0.1-1.0); Blood Urea Nitrogen 21 mg/dL (8-24); Bun/Creatinine Ratio 22.2 (12.0-20.0); CO2, Blood 29 mmol/L (21-32); Calcium, Blood 8.2 mg/dL (8.5-10.1); Chloride, Blood 95 mmol/L (98-108); Creatinine, Blood 0.95 mg/dL (0.60-1.20); Globulin, Blood 4.6 g/dL (2.2-4.0); Glomerular Filtration Rate >60 (60-); Glucose, Blood 102 mg/dL (70-99); Potassium, Blood 4.8 mmol/L (3.5-5.5); Sodium, Blood 126 mmol/L (136-145); Total Protein, Blood 6.4 g/dL (6.4-8.2)
[2019-12-04 19:05] LABS: PCO2 Arterial 63.7 mmHg (35-45); PO2 Arterial 72.6 mmHg (80-100); pH Blood Arterial 7.25 (7.35-7.45)
[2019-12-04] MEDS ORDERED: MELA3 PO (19:11)
[2019-12-04] MEDS ORDERED: SENN187 PO (19:12)
[2019-12-04] MEDS ORDERED: MIRALAX17 GM PO (19:12)
[2019-12-04] MEDS ORDERED: TAMS.4ER PO (19:13)
[2019-12-04] MEDS ORDERED: DOCU100 PO (19:13)
[2019-12-04] MEDS ORDERED: SERT50 PO (19:13)
[2019-12-04] MEDS ORDERED: EXPECTORAN100 MG/5 M PO (19:14)
[2019-12-04] MEDS ORDERED: ACET325 PO (19:15)
[2019-12-04] MEDS ORDERED: BISA10S PR (19:16)
[2019-12-04] MEDS ORDERED: MILK OF MA400 MG/51 PO (19:16)
[2019-12-04] MEDS ORDERED: FAMO20 PO (19:17)
[2019-12-04] MEDS ORDERED: TRAM50 PO (19:17)
[2019-12-04] MEDS ORDERED: BASAGLAR K100 UNIT/1 SC (19:18)
--- NOTE | 2019-12-04 22:45 | NUR ---
TRANSFER RECEIVED TRANSFER FROM PCU 11 VIA BED. PT IS LETHARGIC. ROUSES TO VERBAL STIMULI AND OCCASIONALLY MOANS. MOVES ALL EXTREMITIES VERY WEAKLY, BUT NOT FOLLOWING ANY COMMANDS. OPENS EYES SPONTANEOUSLY, BUT DOES NOT TRACK. MONITOR SHOWS AV PACED RHYTHM, RATE 60. BP 87/47. TEMP 90.8F VIA VALERO TEMP PROBE- DENISA HUGGER IN PLACE. VALERO PATENT AND DRAINING CLOUDY YELLOW URINE. BILATERAL UPPER AND LOWER CONTRACTURES NOTED. NS IV BOLUS INFUSING VIA 20G IV IN RIGHT SHOULDER. SEE ADMIT ASSESSMENT FOR FULL ASSESSMENT.
[2019-12-05 00:22] LABS: Adenovirus Not Detected (NOT DETECT); Bordetella pertussis Not Detected (NOT DETECT); Chlamydophila pneumoniae Not Detected (NOT DETECT); Coronavirus 229E Not Detected (NOT DETECT); Coronavirus HKU1 Not Detected (NOT DETECT); Coronavirus NL63 Not Detected (NOT DETECT); Coronavirus OC43 Not Detected (NOT DETECT); Human Metapneumovirus Not Detected (NOT DETECT); Human Rhinovirus/Enterovirus Not Detected (NOT DETECT); Influenza A/2009-H1 Not Detected (NOT DETECT); Influenza A/H1 Not Detected (NOT DETECT); Influenza A/H3 Not Detected (NOT DETECT); Influenza B Not Detected (NOT DETECT); Mycoplasma pneumoniae Not Detected (NOT DETECT); Parainfluenza Virus 1 Not Detected (NOT DETECT); Parainfluenza Virus 2 Not Detected (NOT DETECT); Parainfluenza Virus 3 Not Detected (NOT DETECT); Parainfluenza Virus 4 Not Detected (NOT DETECT); Respiratory Syncytial Virus Not Detected (NOT DETECT)
--- NOTE | 2019-12-05 00:30 | NUR ---
CONTINUED HYPOTENSION DR. VARGHESE NOTIFIED OF CONTINUED HYPOTENSION AFTER 2400ML IV BOLUS. ALSO NOTIFIED OF DECREASED URINE OUTPUT OF APPROXIMATELY 30CC IN THE LAST TWO HOURS AND INCREASED RESP RATE MID-30s TO 40s. NEW ORDER RECEIVED TO CONSULT ARCHITECTURAL ENGINEER TONIGHT AND TO START NS AT 100CC/HR.
--- NOTE | 2019-12-05 00:45 | NUR ---
DISPATCHER ELECTRIC POWER NOTIFIED DR. HERNANDEZ NOTIFIED OF CONSULT AND STATUS OF PATIENT. NEW ORDER RECIEVED TO GIVE AN ADDITIONAL IV BOLUS OF 1L LR.
--- NOTE | 2019-12-05 03:10 | NUR ---
patient arrived to PCU around 2129. Patient was under significant respiratory distress distress on BiPAP. Upon arrival the patient was borderline hypotensive as well as hypothermic with a core temperature of 90 F. Immediately the patient was placed on a warming blanket in an attempt to bring up his temperature. Upon assessment patient was found to be very critical for the PCU level of care and also within the hour of the patient being in PCU unit his blood pressure began to drop below normal levels. At this time the patient was hypotensive and hypothermic, the physician was notified about this finding in order to take appropriate action and transfer the patient to ICU. at around 0 the patient was transferred to ICU in at an appropriate time in the manner at which time high and in my care for the patient and reported to the ICU nurse.
[2019-12-05 03:41] LABS: BASOPHILS ABSOLUTE AUTO 0.02 K/mm3 (0.00-0.23); BASOPHILS PERCENT AUTO 0 % (0-2); EOSINOPHILS PERCENT AUTO 0 % (0-6); Hematocrit 26.9 % (37.0-53.0); IMMATURE GRAN ABSOLUTE AUTO 0.04 K/mm3 (0.00-0.10); IMMATURE GRAN PERCENT AUTO 1 % (0-1); LYMPHOCYTES ABSOLUTE AUTO 0.44 K/mm3 (0.84-5.20); LYMPHOCYTES PERCENT AUTO 7 % (21-46); MONOCYTES PERCENT AUTO 5 % (4-13); Mean Corpuscular HGB 25.5 pg (26.0-34.0); Mean Corpuscular HGB Conc 29.7 g/dL (31.5-36.5); Mean Platelet Volume 10.2 fL (9.1-12.4); NEUTROPHILS ABSOLUTE AUTO 5.29 K/mm3 (1.96-9.15); NEUTROPHILS PERCENT AUTO 87 % (41-73); NRBC ABSOLUTE 0.02 K/mm3 (0.00-0.02); NRBC Auto 0.3 /100 WBC (0.0-0.2); Platelet Count 61 K/mm3 (150-400); RDW Coefficient Variation 16.3 % (11.7-14.2); RDW Standard Deviation 50.9 fL (35.1-46.3); Red Blood Cell Count 3.14 M/mm3 (4.30-5.90); White Blood Cell Count 6.09 K/mm3 (4.00-11.30)
[2019-12-05 03:45] LABS: Mean Corpuscular Volume 86 fL (80-100)
--- NOTE | 2019-12-05 03:53 | NUR ---
HYPOTENSION/CALL TO MD DR. HERNANDEZ NOTIFIED OF SBP 70s WITH MAP <60. NEW ORDERS RECEIVED TO START LEVOPHED AT THIS TIME. ALSO NOTIFIED OF CONTINUED DECREASE IN URINE OUTPUT.
[2019-12-05 04:10] LABS: Anion Gap 5 mmol/L (6-16); Blood Urea Nitrogen 20 mg/dL (8-24); Bun/Creatinine Ratio 22.6 (12.0-20.0); CO2, Blood 20 mmol/L (21-32); Calcium, Blood 7.1 mg/dL (8.5-10.1); Chloride, Blood 103 mmol/L (98-108); Creatinine, Blood 0.88 mg/dL (0.60-1.20); Glomerular Filtration Rate >60 (60-); Glucose, Blood 61 mg/dL (70-99); Potassium, Blood 5.1 mmol/L (3.5-5.5); Sodium, Blood 128 mmol/L (136-145)
[2019-12-05 05:24] LABS: PCO2 Arterial 35.4 mmHg (35-45); pH Blood Arterial 7.41 (7.35-7.45)
--- NOTE | 2019-12-05 06:41 | NUR ---
SHIFT SUMMARY REMAINED ON BIPAP T/O NOC- NOW 17/11, BUR 14, FIO2 55%. RR 30s-40s. ROUSES TO VERBAL STIMULI. MOVES EXTREMITIES WEAKLY. NOT FOLLOWING COMMANDS. VERY RIGID AND CONTRACTURED. MONITOR SHOWED PACED RHYTHM T/O NOC. 2.4L NS AND 1L LR IV BOLUSES GIVEN. NS INFUSING @ 100CC/HR AFTER BOLUSES. LEVOPHED STARTED AT 0405 THROUGH 18G LAC IV- IV CHECKED FREQUENTLY AND WITH GOOD BLOOD RETURN. TEMP 89.2F UPON ARRIVAL TO ICU- DENISA FRANCO ON UNTIL TEMP REACHED 97F. TEMP NOW 98.4F. NPO. VALERO PATENT AND WITH CLOUDY YELLOW URINE WITH SEDIMENT. TOTAL OF 400CC SINCE ADMIT, BUT OUTPUT HAS BEEN DECREASING. CBG 51 THIS AM- 1/2 AMP D50 GIVEN IV AND CBG INCREASED TO 197 THIRTY MINUTES LATER. WILL REPORT TO ONCOMING RN WHEN AVAILABLE.
--- NOTE | 2019-12-05 10:28 | NUR ---
Echocardiogram performed.
[2019-12-05 10:38] LABS: Source, Urine Catheter
[2019-12-05 10:41] LABS: Appearance, Urine Turbid (Clear); Blood, Urine 5+ (Neg); Color, Urine Yellow (P-Yellow); Glucose Qualitative, Urine Neg (Neg); Ketones, Urine 1+ (Neg); Leukocyte Esterase, Urine 3+ (Neg); Nitrite, Urine Pos (Neg); Protein, Urine 3+ (Neg); Specific Gravity, Urine 1.025 (1.003-1.022); Urobilinogen, Urine 1+ (Normal)
[2019-12-05 10:49] LABS: U Amphetamine Screen DETECTED; U Barbituate Screen Not Detected; U Benzodiazapine Screen Not Detected; U Buprenorphine Screen Not Detected; U Cannabinoids Screen Not Detected; U Cocaine Screen Not Detected; U Methadone Screen Not Detected; U Methamphetamine Screen Not Detected; U Opiates Screen Not Detected; U Oxycodone Screen Not Detected; U Phencyclidine Screen Not Detected; U Propoxyphene Screen Not Detected
[2019-12-05 11:12] LABS: Amorphous Mod (0-Heavy); Bacteria Mod /hpf; Bilirubin, Urine 1+ (Neg); Red Blood Cells, Urine TNTC /hpf (0-2); Squamous Epithelial Cells Mod /hpf (Few); White Blood Cells, Urine TNTC /hpf (0-5)
[2019-12-05 11:13] LABS: Mucus Light (0-Heavy)
--- NOTE | 2019-12-05 12:00 | NUR ---
PICC PICC NOTED TO BE LEAKING LARGE AMOUNT OF BLOOD FROM INSERTION SITE. SITE CLEANSED. STERILE GAUZE WITH NEW CHG DRESSING PLACED. MANUAL PRESSURE HELD. WILL CONTINUE TO MONITOR.
[2019-12-05 12:40] LABS: Hematocrit 26.1 % (37.0-53.0); Hemoglobin 8.1 g/dL (13.5-17.5); Platelet Count 71 K/mm3 (150-400); Red Blood Cell Count 3.24 M/mm3 (4.30-5.90); White Blood Cell Count 17.29 K/mm3 (4.00-11.30)
[2019-12-05 12:52] LABS: Mean Corpuscular Volume 81 fL (80-100)
[2019-12-05 13:07] LABS: Anion Gap 5 mmol/L (6-16); Blood Urea Nitrogen 24 mg/dL (8-24); Bun/Creatinine Ratio 20.5 (12.0-20.0); CO2, Blood 24 mmol/L (21-32); Calcium, Blood 7.1 mg/dL (8.5-10.1); Chloride, Blood 103 mmol/L (98-108); Creatinine, Blood 1.17 mg/dL (0.60-1.20); Glomerular Filtration Rate >60 (60-); Glucose, Blood 63 mg/dL (70-99); Magnesium, Blood 1.7 mg/dL (1.6-2.4); Phosphorus, Blood 4.6 mg/dL (2.5-4.9); Potassium, Blood 5.5 mmol/L (3.5-5.5); Sodium, Blood 132 mmol/L (136-145); Troponin I 0.061 ng/mL (0.000-0.040)
--- NOTE | 2019-12-05 13:07 | NUR ---
LOW CBG AND HYPOTENSIVE PT WITH CBG OF 51. 1/2 AMP OF D50 IV GIVEN. CBG RECHECKED AT THIS TIME IS 117. PT CONTINUE TO HAVE WORSENING HYPOTENSION. LEVOPHED INCREASED TO 10 MCG/MIN. DR ANN HERE TO ROUND ON PT. NO NEW ORDERS. WILL CONTINUE TO MONITOR.
[2019-12-05 13:14] LABS: BAND PERCENT MAN 16 % (0-8); BASOPHILS PERCENT MAN 0 % (0-2); EOSINOPHILS PERCENT MAN 0 % (0-6); LYMPHOCYTES ABSOLUTE MAN 0.51 K/mm3 (0.84-5.20); LYMPHOCYTES PERCENT MAN 3 % (21-46); MONOCYTES PERCENT MAN 0 % (4-13); NEUTROPHILS ABSOLUTE MAN 16.77 K/mm3 (1.96-9.15); SEG NEUTROPHILS PERCENT MAN 81 % (41-73); TOTAL CELLS COUNTED 100
--- NOTE | 2019-12-05 14:26 | NUR ---
FAMILY VISIT PT SPOUSE CAME TO VISIT AT BEDSIDE. PT SPOUSE TEARFUL. UPDATED TO CURRENT PT CONDITION AND PROGNOSIS. PT SPOUSE DISCUSSED THAT PT WOULD NOT WANT TO BE INTUBATED OR HAVE CPR DONE DUE TO HIS RAPIDLY DECLINING CONDITION. DECIDED TO MAKE PT DNR STATUS AT THIS TIME, BUT CONTINUE CURRENT TREATMENTS. PT REQUESTED TO HAVE MULTIPE CHILDREN BE ABLE TO COME VISIT IF PT CONTINUES TO DECLINE.
--- NOTE | 2019-12-05 14:32 | NUR ---
DR HERNANDEZ CALL PLACED TO DR HERNANDEZ. UPDATED TO REQUEST OF PT SPOUSE TO MAKE PT DNR AT THIS TIME. ALSO NOTIFIED OF POSITIVE BLOOD CULTURES, HYPOGLYCEMIA, AND CONTINUED HYPOTENSION. NEW ORDERS RECIEVED.
--- NOTE | 2019-12-05 17:34 | NUR ---
SHIFT SUMMARY PT IS DOING BETTER THIS EVENING. SEE PREVIOUS NOTES FOR MORE SHIFT INFO. PT IS CURRENTLY ABLE TO OPEN EYES TO VOICE. PT MOANS, BUT IS NOT ABLE TO SPEAK. PT SQUEEZES HAND UPON COMMAND. VITAL SIGNS STABLE AT THIS TIME. PT ON BIPAP 18/6, FIO2 60%. PT WITH SHALLOW RESPIRATIONS 30'S. PICC LINE PLACED TO DIANE TODAY. PICC HAS STOPPED LEAKING AT INSERTIONS SITE. LEVOPHED INFUSING AT 10 MCG/MIN, VASOPRESSIN AT 0.04 UNITS/HR, NS TKO, AND D5NS AT 100 ML/HR. PERIPHERIAL IV'S SALINE LOCKED. VALERO IN PLACE WITH 90 ML OF DARK TAN OUTPUT THIS SHIFT. PT REMAINS EDEMATOUS THROUGHOUT. CONTRACTURES AND ROM TO EXTREMITIES UNCHANGED. WILL CONTINUE TO MONITOR AND REPORT OFF TO ONCOMING RN.
--- NOTE | 2019-12-05 21:56 | NUR ---
ASSUMING CARE 12/05/191899 ASSUMING CARE OF CLIENT. CLIENT OPENS EYES TO VOICE BUT IS UNABLE TO FOLLOW COMMANDS. HE IS ABLE TO MOVE ALL EXTREMITIES BUT HAS LIMITED MOVEMENT TO HIS RUE RELATED TO CONTRACTURE. HE IS ON BIPAP CURRENTLY AND TOLERATING IT WELL. LEVOPHED AND VASOPRESSIN CURRENTLY INFUSING THROUGH PICC LINE ON DIANE. RATES VERIFIED WITH OFFGOING RN. VALERO DRAINING MINIMAL TAN OUTPUT. SKIN BRUISED, SWOLLEN, AND WEEPY. LAB RESULTS REVIEWED WITH OFFGOING RN.
[2019-12-06 03:43] LABS: BASOPHILS ABSOLUTE AUTO 0.01 K/mm3 (0.00-0.23); BASOPHILS PERCENT AUTO 0 % (0-2); EOSINOPHILS ABSOLUTE AUTO 0.01 K/mm3 (0.00-0.68); EOSINOPHILS PERCENT AUTO 0 % (0-6); Hemoglobin 7.7 g/dL (13.5-17.5); IMMATURE GRAN ABSOLUTE AUTO 0.08 K/mm3 (0.00-0.10); IMMATURE GRAN PERCENT AUTO 1 % (0-1); LYMPHOCYTES ABSOLUTE AUTO 0.82 K/mm3 (0.84-5.20); LYMPHOCYTES PERCENT AUTO 7 % (21-46); MONOCYTES ABSOLUTE AUTO 0.26 K/mm3 (0.16-1.47); MONOCYTES PERCENT AUTO 2 % (4-13); Mean Corpuscular HGB 25.5 pg (26.0-34.0); Mean Corpuscular HGB Conc 32.1 g/dL (31.5-36.5); Mean Corpuscular Volume 80 fL (80-100); Mean Platelet Volume 10.6 fL (9.1-12.4); NEUTROPHILS ABSOLUTE AUTO 11.03 K/mm3 (1.96-9.15); NEUTROPHILS PERCENT AUTO 90 % (41-73); NRBC ABSOLUTE 0.03 K/mm3 (0.00-0.02); NRBC Auto 0.2 /100 WBC (0.0-0.2); Platelet Count 76 K/mm3 (150-400); RDW Coefficient Variation 16.2 % (11.7-14.2); RDW Standard Deviation 46.6 fL (35.1-46.3); Red Blood Cell Count 3.02 M/mm3 (4.30-5.90); White Blood Cell Count 12.21 K/mm3 (4.00-11.30)
[2019-12-06 04:03] LABS: Alanine Aminotransfer (ALT/SGP 56 U/L (12-78); Albumin, Blood 1.3 g/dL (3.4-5.0); Albumin/Globulin Ratio 0.3 (0.8-1.8); Alk Phos 104 U/L (50-136); Anion Gap 7 mmol/L (6-16); Aspartate Aminotrans (AST/SGOT 55 U/L (12-37); Bilirubin, Total 0.2 mg/dL (0.1-1.0); Blood Urea Nitrogen 24 mg/dL (8-24); Bun/Creatinine Ratio 20.3 (12.0-20.0); CO2, Blood 21 mmol/L (21-32); Chloride, Blood 103 mmol/L (98-108); Creatinine, Blood 1.18 mg/dL (0.60-1.20); Free Thyroxine 1.18 ng/dL (0.70-1.60); Globulin, Blood 3.8 g/dL (2.2-4.0); Glomerular Filtration Rate >60 (60-); Glucose, Blood 239 mg/dL (70-99); Magnesium, Blood 1.7 mg/dL (1.6-2.4); Phosphorus, Blood 4.2 mg/dL (2.5-4.9); Potassium, Blood 5.3 mmol/L (3.5-5.5); Sodium, Blood 131 mmol/L (136-145); Total Protein, Blood 5.1 g/dL (6.4-8.2)
[2019-12-06 05:40] LABS: Base Excess Venous -5.1 mmol/L; Bicarbonate Venous 19.6 mmol/L (24.0-30.0); PCO2 Venous 42.6 mmHg (38-42); pH Blood Venous 7.31 (7.34-7.37)
[2019-12-06 05:41] LABS: PO2 Venous 22.2 mmHg (38-42)
--- NOTE | 2019-12-06 07:15 | NUR ---
ASSUMED CARE BEDSIDE REPORT RECIEVED. PT IS SITTING UP IN BED WITH BIPAP IN PLACE. BIPAP SETTINGS 18/6, FIO2 100%. PT IS DIFFICULT TO ROUSE AND ONLY MOANS OUT AT TIMES TO NOXIOUS STIMULI. PT UNABLE TO FOLLOW COMMANDS. BP STABLE AT THIS TIME. LEVOPHED ON STANDBY. SPO2 LOW 80'S. PICC TO DIANE C/D/I. D5NS INFUSING AT 100 ML/HR AND NS TKO. PT WITH CONTRACTURES NOTED TO RIGHT ARM. PT WITH WEEPING EDEMA THROUGHOUT. VALERO IN PLACE WITH MINIMAL AMOUNT OF YELLOW URINE OUTPUT NOTED. WILL CONTINUE TO MONITOR.
--- NOTE | 2019-12-06 07:25 | NUR ---
UPDATE TO PROVIDER ON PATIENT STATUS 12/06/19 0620 NOTIFIED PROVIDER THAT THE PATIENT'S RESPIRATORY RATE INCREASED TO THE 40S AND AND O2 SATS WERE MAINTAINING IN THE 70S-80S ON 100% FIO2. RESPIRATORY THERAPY IN THE ROOM ASSESSING PATIENT. ATTEMPTED ORAL SUCTION WITH NO IMPROVEMENT. NOTIFIED ABOUT PATIENT'S CHANGE IN STATUS. NO NEW INTERVENTIONS AT THIS TIME. CONTINUING TO SUPPORT RESPIRATORY AND CARDIAC STATUS ABLE.
--- NOTE | 2019-12-06 07:28 | NUR ---
END OF SHIFT SUMMARY PATIENT CURRENTLY ON 100% FIO2 ON BIPAP. HE DOES NOT MOVE EXTREMITIES TO COMMAND BUT WILL OPEN EYES TO VOICE. LUNGS ARE COARSE AND RR IN THE 30S-40S. LEVOPHED OFF WITH VASOPRESSIN AT 0.[address] WITH MINIMAL OUTPUT OVERNIGHT. PATIENT SKIN REMAINS FRAGILE AND WEEPY. PICC LINE IN PLACE INFUSING VASOPRESSIN AND ABX. UPDATED ON PATIENT STATUS.
--- NOTE | 2019-12-06 11:03 | NUR ---
Spoke with Bedside RN Lewis and discussed case. Lewis reports Pt condition, clinical status, and family is considering comfort care. Pt resting in bed and is wearing BIPAP. Non verbal indicators of pain and anxiety noted as evidenced by Pt tossing his head from side to side. Pt's spouse and 2 sons present during visit, including son's . Pt minimally responds to verbal stimuli by opening his eyes intermittently. Engaged in therapeutic discussion regarding goals of care. Listened as family report Pt would not want his life prolonged in this condition. Family reports having a recent discussion with Pt regarding this. Educted on comfort care philosophy with V/U made by family. Family is requesting Pt be placed on comfort care. Discussed Pt's IAD with family in agreement to have it deactivated. Spoke with Dr Ochoa and Dr Trujillo both are agreeable to place Pt on comfort care. Placed order for comfort care, comfort care order set, D/C maintenance medications, and order for IAD to be deactivated per V/O from Dr Martinez. Discussed Pt's allergy to morphine with family. Family reports Pt is allergic to morphine only in the opioid medications. Family reports Pt will tolerate dilaudid and oxicodone. Replaced morphine order in order set to dilaudid and oxycodone oral solution per V/O from Dr Martinez. Called [facility] for IAD deactivation. Palliative Care will F/U with Pt for symptom management.
--- NOTE | 2019-12-06 11:14 | NUR ---
COMFORT CARE AFTER PT FAMILY DISCUSSION WITH PALLIATIVE CARE, FAMILY HAS DECIDED TO MAKE PT COMFORT CARE. COMFORT CARE ORDERS IN. [facility] HERE TO TURN OFF PT AICD AT THIS TIME. WILL DISCONTINUE BIPAP AND IV MEDS AT THIS TIME.
--- NOTE | 2019-12-06 11:43 | NUR ---
F/U visit. Pt resting in bed. [facility] deactivated [facility] prior to visit. Bedside RN Lewis and family at bedside. Lewis D/C BIPAP with Pt appearing comfortable. Educated family on signs of of discomfort and to contact Lewis if non verbal indicators of discomfort occur with V/U made by family. No other concerns reported at this time. Placed order for comfort care cart and transfer to medical floor per V/O from Dr Martinez. Palliative Care will remain available for symptom management and therapeutic visits.
--- NOTE | 2019-12-06 17:17 | NUR ---
TRANSFER TO MEDICAL REPORT CALLED VIA PHONE. PT TAKEN TO ROOM 308 VIA BED WITH PT SPOUSE FOLLOWING. ALL PT BELONGINGS AND MEDS TAKEN WITH PT.
--- NOTE | 2019-12-06 17:32 | NUR ---
Initial spiritual care note: Met with Mr. Gonzales's family at bedside. of 38 years tearful, but appropriate. All family appears to be in acceptance of path. They are non-religion, but responded well to self-care recommendations and affirmation of obvious love. Mr. Gonzales appeared non-responsive and comfortable. Advised grip assembler services will remain available.
--- NOTE | 2019-12-06 18:34 | NUR ---
CC ASSESSMENT: PT IN NO APPARENT DISTRESS. NO DYSPNEA/SOB/SECRETIONS. FAMILY IN ROOM. WCTM.
--- NOTE | 2019-12-06 19:08 | NUR ---
SHIFT SUMMARY: PATIENT XFR FROM ICU-11 THIS SHIFT. PT ON COMFORT CARE. MEDICATED FOR EXCESSIVE SECRETIONS. PT IN NO APPARENT DISTRESS. FAMILY IN ROOM. VALERO PATENT AND DRAINING. WEEPING WOUNDS BUE. REPORT GIVEN TO ONCOMING RN.
--- NOTE | 2019-12-07 04:44 | NUR ---
SHIFT SUMMARY ASSUMED CARE OF PT AT 1900. PT IS ON COMFORT CARE. PT WAS SLEEP SOUNDSLY UPON ARRIVES. FAMILY PRESENT IN ROOM. PT BECOME RESTLESS DURING THE NIGHT. MEDICATED WITH 5MG OF ROXINAL. RESPIRATIONS STABLE, GURGLE HEARD WHEN STANDING AT BEDSIDE, MEDICATED WITH ATROPINE DROPS. PT ARM IS WEEPING PROFUSELY, DISPOSABLE CHUCKS UNDER THIS. FAMILY ASKED PT NOT BE MOVED BECAUSE HE IS COMFORTABLE. PT STILL CAN SHAKE HIS HEAD YES AND NO. CALL LIGHT IN REACH, BED IN LOWEST POSTION, WILL CONTINUE TO MONITOR UNTIL DAYHSHIFT NURSE ARRIVES.
--- NOTE | 2019-12-07 08:18 | NUR ---
CC ASSESSMENT: PT IN NO APPARENT DISTRESS / NO C/O PAIN. NO DYSPNEA/SOB/SECRETIONS. FAMILY IN ROOM. WCTM.
--- NOTE | 2019-12-07 09:10 | NUR ---
CC ASSESSMENT: NO C/O PAIN / PT IN NO APPARENT DISTRESS. NO DYSPNEA/SOB/SECRETIONS. FAMILY IN ROOM. WCTM.
--- NOTE | 2019-12-07 11:31 | NUR ---
CC ASSESSMENT: NO C/O PAIN / PT IN NO APPARENT DISTRESS. NO DYSPNEA/SOB/SECRETIONS. FAMILY PRESENT. VALERO PATENT AND DRAINING. WCTM.
--- NOTE | 2019-12-07 14:09 | NUR ---
CC ASSESSMENT: PT IN NO APPARENT DISTRESS. NO DYSPNEA/SOB/SECRETIONS. FAMILY IN ROOM. WCTM.
--- NOTE | 2019-12-07 14:10 | NUR ---
CC ASSESSMENT: MEDICATED FOR PAIN PER EMAR. NO DYSPNEA/SOB/SECRETIONS. FAMILY IN ROOM. WCTM.
--- NOTE | 2019-12-07 14:55 | NUR ---
[facility] CARE COMFORT CARE VISIT NOTE: Visit to and pt in room. Children had gone to get lunch. pt with eyes open but rolling back in his head at times. He is responsive to as she talks to him and calms him. Upper airway secretions noted and pt is having difficulty clearing secretions. One ragged coughing spell noted during my visit, where pt could not clear or inhale for long enough to change color to more dusky in his face and neck. Pt's upper extremeties edematous, painful to touch and bruised. Right wrist wrapped in coban and sock and fixed in contracture. is uncertain about this as it is something that happened during his stay at [place]. We discussed s/s from my assessment and signs of decline and pain that family might be seeing as time goes on. Discussed with pt's RN also, premed for bed mobilitiy and repositioning and use of scopolomine patch to minimize upper airway secretions. Case conferenced with CM after my visit and assessment also. I believe pt is more actively in the dying process at this time. He appears comfortable at rest with hob elevated but with any movement or change of position is grimacing. He was recently medicated for pain after repositioning. Nonverbal s/s of pain provided to so she could report to nursing if noted by family. Pt is nonverbal at this time. He does give faint nod to some questions from his and when trying to make eye contact with me but he is profoundly fatigued and starting to withdraw or drift away intermittently while talking to him. Will reeval in am for s/s management and cont to support pt/family, answer their questions.
--- NOTE | 2019-12-07 15:34 | NUR ---
CC ASSESSMENT: NO C/O PAIN. SCOPOLAMINE TOP PLACED BEHIND L EAR. FAMILY IN ROOM. WCTM.
--- NOTE | 2019-12-07 18:24 | NUR ---
SHIFT SUMMARY: NO ACUTE CHANGES TO REPORT THIS SHIFT. COMFORT CARE MEASURES CONTINUING. MEDICATED FOR PAIN & SECRETIONS PER EMAR; SCOPOLAMINE TOP IN PLACE BEHIND L EAR. PT ABLE TO RESPOND TO Y/N QUESTIONS WITH HEAD SHAKE/NOD. L ARM EDEMATOUS/WEEPING; AIR RACHEL IN PLACE. VALERO PATENT AND DRAINING. FAMILY IN ROOM T/O SHIFT. WCTM.
--- NOTE | 2019-12-07 18:50 | NUR ---
CC ASSESSMENT PT RESTING COMFORTABLY, FAMILY AT THE BEDSIDE. DENIES PAIN OR NEEDS AT THIS TIME. RESPS UNLABORED. WCTM.
--- NOTE | 2019-12-07 20:50 | NUR ---
CC ASSESSMENT PT CONTINUES TO REST COMFORTABLY. FAMILY REMAINS AT BEDSIDE. DENIES NEEDS AT THIS TIME.
--- NOTE | 2019-12-07 21:19 | NUR ---
CC ASSESSMENT PT MEDICATED FOR PAIN/AIR HUNGER PER EMAR, ORAL CARE AND SUCTIONING DONE. PT COMFORTABLE AT THIS TIME, REFUSING REPOSITIONING. FAMILY AT THE BEDSIDE. PROVIDED THERAPEUTIC COMMUNICATION AND ACTIVE LISTENING.
--- NOTE | 2019-12-07 23:19 | NUR ---
CC ASSESSMENT PT COMFORTABLE, DENIES NEEDS AT THIS TIME. FAMILY CONTINUES TO BE PRESENT AT BEDSIDE. PT AND SON STATING THEY BOTH WILL BE STAYING THE NIGHT. WCTM
--- NOTE | 2019-12-08 01:19 | NUR ---
CC ASSESSMENT PT ASLEEP AT THIS TIME, NO ACUTE CHANGES IN CONDITION NOTED. FAMILY REMAINS AT BEDSIDE. WCTM.
--- NOTE | 2019-12-08 04:14 | NUR ---
SHIFT SUMMARY PT REMAINS ON COMFORT CARE, WAS MONITORED EVERY 1-2 HOURS WITH NEEDS MET. ASLEEP COMFORTABLY AT THIS TIME, NO S/S INCREASED PAIN OR DISCOMFORT NOTED. FAMILY REMAINS AT BEDSIDE. CALL LIGHT, POSSESSIONS IN REACH. WILL CONTINUE TO MONITOR PT COMFORT LEVEL AND NEEDS UNTIL DAY RN ASSUMES CARE.
--- NOTE | 2019-12-08 09:45 | NUR ---
PT OPENS EYES TO VERBAL STIM HOWEVER DOES NOT RESPOND OR FOLLOW COMMANDS. FAMILY @ BEDSIDE STATE HE HAS BEEN NONRESPONSIVE SINCE EARLY AM. NO S/S PAIN HOWEVER AIR HUNGER PRESENT, R/R 30'S. PRN OXYCODONE 20MG GIVEN FOR AIRHUNGER/COMFORT. BUE EDEMATOUS WEEPING, ABSORBENT CHUCKS CHANGED. FAMILY REQUESTS NO REPOSITION @ THIS TIME. [employer] PATENT, EBER COHEN YELLOW URINE. WILL CONT TO MX & PROVIDE COMFORT CARE.
--- NOTE | 2019-12-08 10:30 | NUR ---
[facility] CARE COMFORT CARE VISIT - Pt is mostly unresponsive to me and family at bedside. Son, alla and have stayed with them and look fatigued. Pt appeared to try to focus on me when I spoke to him for assessment but could not hold eye contact or keep eyes open for long. He had two spells of choking, coughing on upper airway secretions but was able to settle it and breathe comfortably again. He has a scopolomine patch applied. He has been receiving medications for comfort prn per eMAR. RN and family feel that s/s are managed well at this time. I am not seeing nonverbal indicators of pain, anxiety, dyspnea or distress. Family is loving/attentive to him and each other. They are requesting minimal or no repositioning. Pt's arms remain very bruised, edematous, weeping and painful to touch. Self care encouraged to family members. Spent much of my visit educating and supporting family, answering their questions. Pt appears to be actively dying. Coached them on s/s they may start to see and written material given for them to review on EOL s/s, "The Eleventh Hour". I spoke with pt's RN and ANNABEL re: assessment after visit.
--- NOTE | 2019-12-08 10:55 | NUR ---
PALLIATIVE CARE IN TO PT, PROVIDE REASSURANCE/SUPPORT, ANSWER QUESTIONS FOR FAMILY. PT APPEARS COMFORTABLE @ THIS TIME, FAMILY DECLINES REPOSITIONING. WILL CONTINUE TO MX.
--- NOTE | 2019-12-08 12:30 | NUR ---
NO S/S PAIN @ THIS TIME. FAMILY ALLOW SLIGHT REPOSITIONING, HOWEVER REQUEST PT SUPINE, SUPPORTED w PILLOWS. HE CONTINUES NONVERBAL, ESSENTIALLY NONRESPONSIVE.
--- NOTE | 2019-12-08 16:37 | NUR ---
FAMILY STATE PT @ X'S APNEIC. REASSURED THEM THIS IS NOT UNUSSUAL & MAY INCREASE. HE HAS INCREASED SECRETIONS @ THIS TIME, THROAT SX'D, ATROPINE GTTS PROVIDED. PT DEMONSTRATES SOME MILD S/S PAIN, ANXIETY/RESTLESSNESS. PRN DILAUDID 2MG & ATIVAN 1MG GIVEN. PT REPOSITIONED, RESTING SLIGHTLY TO R SIDE TO DECREASE SECRETIONS. FAMILY ED PROVIDED R/T COMFORT CARE MEASURES & MEDICATIONS. THEY ARE APPRECIATIVE, REASSURED @ THIS TIME.
--- NOTE | 2019-12-08 17:54 | NUR ---
COMFORT CARE CONTINUES. @ THIS TIME NO S/S PAIN. EXCESS SECRETIONS RELIEVED. SKIN IS DRY HOWEVER BECOMING PALE. BREATHING IS SHALLOW w OCCASIONAL APNEA. MULT FAMILY @ BEDSIDE. WILL CONT TO MX.
--- NOTE | 2019-12-08 18:47 | NUR ---
CALLED TO ROOM BY FAMILY MEMBER. ON ASSESSMENT PT , TIME OF 184. FAMILY STATE PASSING PEACEFUL. APPRECIATIVE OF ALL CARE THEY RECIEVED WHILE IN HOSP. CORNER BEAD OPERATOR, NURSE TYVR NOTIFIED. CORNER BEAD OPERATOR TO NOTIFY DR BETTENCOURT.
--- NOTE | 2019-12-08 19:21 | NUR ---
ATTEMPTED TO CALL [facility] TO UPDATE RE PT'S PASSING, NO ANSWER, IT DID NOT FORWARD TO A MESSAGE WHERE I COULD LEAVE A MESSAGE EITHER. FAMILY HAD STATED THAT THEY ALSO TRIED TO CALL THEM AND GOT NO ANSWER.
--- NOTE | 2019-12-08 19:51 | NUR ---
NOTIFIED JENNIFER MCKEE OF PT' PASSING AND TIME OF PASSING.
== END 2019-12-08 18:40 | DRG 871 ==
LOC: ER 18:14 → PCU 19:23 → MEDS 19:23 → ICUW 19:23 → PCU 21:18 → ICUW 22:56 → MEDS 12-06 16:46
PROVIDERS: Emergency Medicine; Internal Medicine; Internal Medicine Critical Care Medicine; ADMIT Family Medicine
PROC: 5A09357 Assistance with Respiratory Ventilation, Less than 24 Consecutive Hours, Continuous Positive Airway Pressure (ICD-10-PCS; principal; 2019-12-04)
PROC: 02H633Z Insertion of Infusion Device into Right Atrium, Percutaneous Approach (ICD-10-PCS; 2019-12-05)
PROC: 3E033XZ Introduction of Vasopressor into Peripheral Vein, Percutaneous Approach (ICD-10-PCS; 2019-12-05)
DX: A41.81 Sepsis due to Enterococcus (principal); J96.01 Acute respiratory failure with hypoxia; J96.02 Acute respiratory failure with hypercapnia; G92 Toxic encephalopathy; Z20.828 Contact with and (suspected) exposure to other viral communicable diseases; J69.0 Pneumonitis due to inhalation of food and vomit; R65.21 Severe sepsis with septic shock; E87.1 Hypo-osmolality and hyponatremia; N39.0 Urinary tract infection, site not specified; I25.10 Atherosclerotic heart disease of native coronary artery without angina pectoris; R65.20 Severe sepsis without septic shock; Z51.5 Encounter for palliative care; Z95.0 Presence of cardiac pacemaker; Z95.1 Presence of aortocoronary bypass graft; E88.09 Other disorders of plasma-protein metabolism, not elsewhere classified; D69.6 Thrombocytopenia, unspecified; R29.898 Other symptoms and signs involving the musculoskeletal system; J44.9 Chronic obstructive pulmonary disease, unspecified; N18.3 Chronic kidney disease, stage 3 (moderate); I12.9 Hypertensive chronic kidney disease with stage 1 through stage 4 chronic kidney disease, or unspecified chronic kidney disease; Z79.4 Long term (current) use of insulin; E11.22 Type 2 diabetes mellitus with diabetic chronic kidney disease; Z87.891 Personal history of nicotine dependence; Z79.01 Long term (current) use of anticoagulants; Z79.02 Long term (current) use of antithrombotics/antiplatelets; D63.8 Anemia in other chronic diseases classified elsewhere; K21.9 Gastro-esophageal reflux disease without esophagitis; T68.XXXA Hypothermia, initial encounter; E11.649 Type 2 diabetes mellitus with hypoglycemia without coma; F32.9 Major depressive disorder, single episode, unspecified; N40.1 Benign prostatic hyperplasia with lower urinary tract symptoms; R29.6 Repeated falls; R13.10 Dysphagia, unspecified
CPT/HCPCS: 0099U; 31720; 36415; 36569; 36600; 51702; 70450; 71045; 80048; 80053; 81001; 82330; 82803; 82947; 83605; 83735; 84100; 84439; 84443; 84484; 85025; 87040; 87077; 87086; 87186; 93005; 93010; 93306; 94640; 94644; 94660; 96365-59; 99285-25; C1751; J0696; J1170; J1650; J1815; J2060; J3370; J7030; J7042; J7050; J7060; J7120; U0002